=== PATIENT | male | born 1995 | race Caucasian/White ===

== ENCOUNTER 2017-10-11 03:04 | Emergency (ER) | payer OTHER ==
[~2017-10-11] VITALS: Ht 193 cm; Wt 75.0 kg
[~2017-10-11 03:04] MED LIST: OXYC5CAP2 PO
[2017-10-11 07:58] VITALS: BP 118/64
== END 2017-10-11 09:00 | disposition home or self-care (01) ==
LOC: ED 08:15
DX: F10.120 Alcohol abuse with intoxication, uncomplicated (principal)
CPT/HCPCS: 36415; 80307; 99283